=== PATIENT | female | born 1940 | race Caucasian/White ===

== ENCOUNTER 2016-08-23 09:21 | Outpatient (CLI) ==
[2016-03-01 16:53] VITALS: BMI 21.9
[2016-08-23 10:08] LABS: HEMATOCRIT 33.5 % (37.0-47.0); HEMOGLOBIN 11.4 g/dl (12.0-16.0); MEAN CORPUSCULAR HEMOGLOBIN 29.3 pg (27.0-31.0); MEAN CORPUSCULAR VOLUME 86.1 fl (81.0-99.0); RED BLOOD COUNT 3.89 10^6/ul (4.20-5.40); WHITE BLOOD COUNT 6.69 K/ul (4.6-10.2)
[2016-08-23 10:14] LABS: BILIRUBIN,URINE Negative (NEGATIVE); KETONES,URINE Negative (NEGATIVE); LEUKOCYTE ESTERASE ,URINE Trace (NEGATIVE); NITRITE,URINE Negative (NEGATIVE); PH,URINE 5.5 (5-9); PROTEIN,URINE Negative (NEGATIVE); URINE, BLOOD Negative (NEGATIVE)
[2016-08-23 10:19] LABS: ADD URINE MICROSCOPIC YES
[2016-08-23 10:20] LABS: BACTERIA,URINE TRACE (NOT PRESENT)
[2016-08-23 10:51] LABS: ALBUMIN 3.8 g/dL (3.4-5.0); ALBUMIN/GLOBULIN RATIO 1.09; BILIRUBIN,TOTAL 1.03 mg/dL (0.00-1.20); BUN/CREATININE RATIO 13.77; CALCIUM 10.2 mg/dL (8.2-10.2); CREATININE 2.25 mg/dL (0.60-1.30); MAGNESIUM 1.9 mg/dL (1.7-2.2); PHOSPHORUS 4.1 mg/dL (2.8-4.1); TOTAL PROTEIN 7.3 g/dL (5.8-8.1); URIC ACID 5.5 mg/dL (2.4-6.0)
[2016-08-24 09:37] LABS: URINE CREATINE 49.5 mg/dL (Not Estab.)
[2016-08-24 13:16] LABS: ANTI-NUCLEAR ANTIBODY SCREEN Negative (Negative)
[2016-08-24 13:32] LABS: URINE PROTEIN/CREATININE RATIO 261 mg/g creat (0-200)
[2016-08-25 07:21] LABS: ANTIMYELOPEROXIDASE ABS < 9.0 U/mL (0.0-9.0); ANTIPROTEINASE 3 ABS < 3.5 U/mL (0.0-3.5)
[2016-08-29 08:00] LABS: IMMUNOGLOBULIN M, QN, SERUM 50 mg/dL (26-217)
[2016-08-29 08:12] LABS: COMPLEMENT C3 126; COMPLEMENT C4 25
== END 2016-08-23 09:22 | disposition home or self-care (01) ==
LOC: LAB 09:21
PROVIDERS: ATTEND Internal Medicine Nephrology
DX: N18.4 Chronic kidney disease, stage 4 (severe) (principal); I10 Essential (primary) hypertension
CPT/HCPCS: 36415; 80053; 81001; 82306; 82570; 83520; 83735; 83970; 84100; 84156; 84550; 85027; 86038; 86160; 86256; 86320

== ENCOUNTER 2016-10-23 07:38 | Outpatient (CLI) ==
[2016-03-01 16:53] VITALS: BMI 21.9
[2016-10-23 08:03] LABS: HEMATOCRIT 34.9 % (37.0-47.0); HEMOGLOBIN 11.5 g/dl (12.0-16.0); MEAN CORPUSCULAR HEMOGLOBIN 28.8 pg (27.0-31.0); MEAN CORPUSCULAR VOLUME 87.3 fl (81.0-99.0); WHITE BLOOD COUNT 6.76 K/ul (4.6-10.2)
[2016-10-23 08:07] LABS: BILIRUBIN,URINE Negative (NEGATIVE); KETONES,URINE Negative (NEGATIVE); LEUKOCYTE ESTERASE ,URINE 3+ (NEGATIVE); NITRITE,URINE Negative (NEGATIVE); PROTEIN,URINE Trace (NEGATIVE); URINE, BLOOD Trace-intact (NEGATIVE)
[2016-10-23 08:11] LABS: ADD URINE MICROSCOPIC YES
[2016-10-23 08:13] LABS: BACTERIA,URINE TRACE (NOT PRESENT)
[2016-10-23 09:39] LABS: ALBUMIN 3.9 g/dL (3.4-5.0); BUN/CREATININE RATIO 14.94; CALCIUM 10.5 mg/dL (8.2-10.2); CREATININE 2.61 mg/dL (0.60-1.30); FERRITIN 138.41 ng/mL (4.63-204.00); FOLATE 12.9 ng/mL (3.1-20.5); PHOSPHORUS 3.9 mg/dL (2.8-4.1)
[2016-10-24 09:37] LABS: URINE CREATINE 61.4 mg/dL (Not Estab.)
== END 2016-10-23 07:39 | disposition home or self-care (01) ==
LOC: LAB 07:38
PROVIDERS: ATTEND Internal Medicine Nephrology
DX: N18.4 Chronic kidney disease, stage 4 (severe) (principal); D63.1 Anemia in chronic kidney disease; E55.9 Vitamin D deficiency, unspecified; I10 Essential (primary) hypertension
CPT/HCPCS: 36415; 80069; 81001; 82306; 82570; 82607; 82728; 82746; 83540; 83550; 83735; 84156; 85027

== ENCOUNTER 2016-12-24 10:07 | Outpatient (CLI) ==
[2016-03-01 16:53] VITALS: BMI 21.9
[2016-12-24 10:42] LABS: HEMATOCRIT 34.5 % (37.0-47.0); HEMOGLOBIN 11.5 g/dl (12.0-16.0); MEAN CORPUSCULAR HEMOGLOBIN 29.2 pg (27.0-31.0); MEAN CORPUSCULAR HGB CONC 33.3 (31.8-35.4); MEAN CORPUSCULAR VOLUME 87.6 fl (81.0-99.0); RED BLOOD COUNT 3.94 10^6/ul (4.20-5.40); WHITE BLOOD COUNT 6.68 K/ul (4.6-10.2)
[2016-12-24 11:47] LABS: ALBUMIN 3.7 g/dL (3.4-5.0); ANION GAP 15.2; CALCIUM 10.1 mg/dL (8.2-10.2); CREATININE 2.25 mg/dL (0.60-1.30); FERRITIN 131.45 ng/mL (4.63-204.00); FOLATE 15.2 ng/mL (3.1-20.5); MAGNESIUM 2.2 mg/dL (1.7-2.2); PHOSPHORUS 3.8 mg/dL (2.8-4.1); POTASSIUM 4.2 mmol/L (3.5-5.10)
[2016-12-24 14:35] LABS: BILIRUBIN,URINE Negative (NEGATIVE); KETONES,URINE Negative (NEGATIVE); LEUKOCYTE ESTERASE ,URINE 2+ (NEGATIVE); NITRITE,URINE Negative (NEGATIVE); PH,URINE 5.5 (5-9); PROTEIN,URINE 1+ (NEGATIVE); URINE, BLOOD Trace-intact (NEGATIVE)
[2016-12-24 14:47] LABS: ADD URINE MICROSCOPIC YES
[2016-12-24 14:59] LABS: BACTERIA,URINE 1+ (NOT PRESENT)
[2016-12-25 10:39] LABS: URINE CREATINE 150.1 mg/dL (Not Estab.)
== END 2016-12-24 10:08 ==
LOC: LAB 10:07
PROVIDERS: ATTEND Internal Medicine Nephrology
DX: N18.4 Chronic kidney disease, stage 4 (severe) (principal); D63.1 Anemia in chronic kidney disease; I12.9 Hypertensive chronic kidney disease with stage 1 through stage 4 chronic kidney disease, or unspecified chronic kidney disease
CPT/HCPCS: 36415; 80069; 81001; 82306; 82570; 82607; 82728; 82746; 83540; 83550; 83735; 83970; 84156; 85027

== ENCOUNTER 2017-03-25 09:36 | Outpatient (CLI) ==
[2016-03-01 16:53] VITALS: BMI 21.9
[2017-03-25 10:09] LABS: HEMATOCRIT 31.7 % (37.0-47.0); HEMOGLOBIN 11.1 g/dl (12.0-16.0); MEAN CORPUSCULAR HEMOGLOBIN 30.2 pg (27.0-31.0); MEAN CORPUSCULAR VOLUME 86.4 fl (81.0-99.0); RED BLOOD COUNT 3.67 10^6/ul (4.20-5.40); WHITE BLOOD COUNT 7.26 K/ul (4.6-10.2)
[2017-03-25 10:27] LABS: BILIRUBIN,URINE Negative (NEGATIVE); KETONES,URINE Negative (NEGATIVE); LEUKOCYTE ESTERASE ,URINE 1+ (NEGATIVE); NITRITE,URINE Negative (NEGATIVE); PH,URINE 5.5 (5-9); PROTEIN,URINE Negative (NEGATIVE); URINE, BLOOD Negative (NEGATIVE)
[2017-03-25 10:30] LABS: ADD URINE MICROSCOPIC YES; BACTERIA,URINE 1+ (NOT PRESENT)
[2017-03-25 11:11] LABS: ALBUMIN 3.3 g/dL (3.4-5.0); ANION GAP 15.3; BUN/CREATININE RATIO 17.59; CALCIUM 10.3 mg/dL (8.2-10.2); CREATININE 2.33 mg/dL (0.60-1.30); MAGNESIUM 1.9 mg/dL (1.7-2.2); PHOSPHORUS 3.6 mg/dL (2.8-4.1); POTASSIUM 4.3 mmol/L (3.5-5.10)
[2017-03-26 13:13] LABS: URINE CREATININE 55.5 mg/dL (Not Estab.); URINE TOTAL PROTEIN 7.6 mg/dL (Not Estab.)
== END 2017-03-25 09:37 | disposition home or self-care (01) ==
LOC: LAB 09:36
PROVIDERS: ATTEND Internal Medicine Nephrology
DX: N18.4 Chronic kidney disease, stage 4 (severe) (principal); E55.9 Vitamin D deficiency, unspecified; I10 Essential (primary) hypertension
CPT/HCPCS: 36415; 80069; 81001; 82306; 82570; 83735; 83970; 84156; 84550; 85027

== ENCOUNTER 2017-04-05 12:46 | Outpatient (CLI) ==
[2016-03-01 16:53] VITALS: BMI 21.9
== END 2017-04-05 12:47 | disposition home or self-care (01) ==
LOC: RAD 12:46
PROVIDERS: ATTEND Internal Medicine
DX: Z12.31 Encounter for screening mammogram for malignant neoplasm of breast (principal)
CPT/HCPCS: 77067

== ENCOUNTER 2017-07-03 09:25 | Outpatient (CLI) ==
[2016-03-01 16:53] VITALS: BMI 21.9
== END 2017-07-03 09:26 | disposition home or self-care (01) ==
LOC: LAB 09:25
PROVIDERS: ATTEND Internal Medicine Nephrology
DX: N18.4 Chronic kidney disease, stage 4 (severe) (principal); E55.9 Vitamin D deficiency, unspecified; I10 Essential (primary) hypertension
CPT/HCPCS: 36415; 80069; 81001; 82306; 82570; 83735; 83970; 84156; 84550; 85027

== ENCOUNTER 2017-09-24 11:14 | Outpatient (CLI) ==
[2016-03-01 16:53] VITALS: BMI 21.9
== END 2017-09-24 11:15 | disposition home or self-care (01) ==
LOC: LAB 11:14
PROVIDERS: ATTEND Internal Medicine Nephrology
DX: N18.4 Chronic kidney disease, stage 4 (severe) (principal); I10 Essential (primary) hypertension
CPT/HCPCS: 36415; 80069; 81001; 82306; 82570; 83735; 83970; 84156; 84550; 85027

== ENCOUNTER 2017-09-29 15:43 | Emergency (ER) | payer OTHER ==
[2017-09-29 15:47] VITALS: BP 153/75; TEMP 98.1; BMI 24.1
--- NOTE | 2017-09-29 15:58 | ED.PDOC ---
General ED Provider: Dr. ESDRAS INTERIANO-ER Chief Complaint: Foot Pain/Injury Stated Complaint: my toe looks awful Time Seen by Physician: 15:56 Mode of Arrival: Walk-In Information Source: Patient Exam Limitations: No limitations Primary Care Provider: RINKU HAMILTON Nursing and Triage Documentation Reviewed and Agree: Yes Reviewed sepsis parameters & appropriate labs ordered?: Yes System Inflammatory Response Syndrome: Not Applicable Sepsis Protocol: For patient's 13 years and over: Temp is 96.8 and below OR 101 and greater Pulse >90 BPM Resp >20/minute Acutely Altered Mental Status Are patient's symptoms suggestive of a new infection, such as: -Pneumonia -Skin, Soft Tissue -Endocarditis -UTI -Bone, Joint Infection -Implantable Device -Acute Abdominal Infection -Wound Infection -Meningitis -Blood Stream Catheter Infection -Unknown Skin Complaint Exam - Skin/Soft Tissue Complaint/Exam Onset/Duration: 24hrs Symptoms Are: Still present Timing: Constant Initial Severity: Mild Current Severity: Moderate Location: right fourth toe Character: Reports: Redness, Swelling, Raised, Painful Aggravating: Reports: None Alleviating: Reports: None Associated Signs and Symptoms: Reports: Drainage, Bruising, Tenderness Related Surgical History: Reports: None Recent Exposure to Others w/Similar Symptoms: No Skin Findings: Present: Erythema, Induration, Wet ulceration, Pustules Joint Tenderness Present: No Differential Diagnoses: Abscess Review of Systems - Review Of Systems Constitutional: Reports: No symptoms Eyes: Reports: No symptoms Ears, Nose, Mouth, Throat: Reports: No symptoms Respiratory: Reports: No symptoms Cardiac: Reports: No symptoms GI: Reports: No symptoms : Reports: No symptoms Musculoskeletal: Reports: No symptoms Skin: Reports: Other Neurological: Reports: No symptoms Endocrine: Reports: No symptoms Hematologic/Lymphatic: Reports: No symptoms All Other Systems: Reviewed and Negative Past Medical History - Past Medical History Previously Healthy: No Endocrine: Reports: DM 2 Cardiovascular: Reports: Hypertension Respiratory: Reports: None Hematological: Reports: None Gastrointestinal: Reports: None Genitourinary: Reports: None Neuro/Psych: Reports: CVA (2 months ago) Musculoskeletal: Reports: None Cancer: Reports: None Last Menstrual Period: n/a Other Pertinent Past Medical History: hysterectomy - Surgical History General Surgical History: Reports: Hysterectomy, Orthopedic (multiple toes amputated each foot.) - Family History Family History: Reports: Unknown - Social History Smoking Status: Former smoker Hx Substance Use: No Alcohol Screening: None Lives: With family Physical Exam - Physical Exam Appearance: Well-appearing, No pain distress, Well-nourished Pain Distress: Mild Eyes: EVELIO ENT: Ears normal, Nose normal, Oropharynx normal Neck: Supple Respiratory: Airway patent Cardiovascular: RRR GI/: Soft, Nontender, No masses, Bowel sounds normal, No Organomegaly Musculoskeletal: Normal strength, ROM intact, No edema, No calf tenderness Skin: Warm, Dry, Normal color Neurological: Sensation intact Psychiatric: Affect appropriate, Mood appropriate Physician Notification - Case Discussed Physician Notified: dr hamilton--agreed wteren sierra transfer Time of Notification: 15:58 Critical Care Note - Critical Care Note Total Time (mins): 0 Course - Course Vital Signs: Temp Pulse Resp BP Pulse Ox 09/29/17 15:43 98.1 F 99 H 16 153/75 H 97 Departure - Departure Time of Disposition: 15:58 Disposition: TSF SHORT-TRM HOSP 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
== END 2017-09-29 16:50 | disposition short-term general hospital (02) ==
LOC: ED 15:43
DX: E11.52 Type 2 diabetes mellitus with diabetic peripheral angiopathy with gangrene (principal); I96 Gangrene, not elsewhere classified; Z79.4 Long term (current) use of insulin; I10 Essential (primary) hypertension; Z86.73 Personal history of transient ischemic attack (TIA), and cerebral infarction without residual deficits
CPT/HCPCS: 99285

== ENCOUNTER 2018-01-14 08:33 | Outpatient (CLI) | END 2018-01-14 08:34 | disposition home or self-care (01) | LOC: LAB 08:33 | PROVIDERS: ATTEND Nurse Practitioner Family | DX: N18.4 Chronic kidney disease, stage 4 (severe) (principal); I10 Essential (primary) hypertension | CPT/HCPCS: 36415; 80069; 81001; 82306; 82570; 83970; 84156; 84550; 85027 ==

== ENCOUNTER 2018-04-16 08:52 | Outpatient (CLI) | END 2018-04-16 08:53 | disposition home or self-care (01) | LOC: LAB 08:52 | PROVIDERS: ATTEND Internal Medicine Nephrology | DX: N18.4 Chronic kidney disease, stage 4 (severe) (principal); E55.9 Vitamin D deficiency, unspecified; I10 Essential (primary) hypertension | CPT/HCPCS: 36415; 80069; 81001; 82306; 82570; 83735; 83970; 84156; 84550; 85027 ==

== ENCOUNTER 2018-05-06 08:45 | Outpatient (CLI) ==
--- NOTE | 2018-05-07 08:59 | MAMMO ---
EXAM: Bilateral digital screening mammogram (2-D and 3-D) History: Screening Comparison: Bilateral mammogram 04/05/2017 Findings: MLO and CC views of bilateral breasts demonstrate scattered fibroglandular breast parenchy ma. CAD was reviewed by the radiologist. Tomosynthesis was performed. Stable benign bilateral breas t calcifications. There are no dominant masses, no suspicious microcalcifications and no architectur al distortions Impression: Benign stable mammogram. Recommend followup routine screening mammography in 1 year. BIRADS 2
== END 2018-05-06 08:46 | disposition home or self-care (01) ==
LOC: RAD 08:45
PROVIDERS: ATTEND Internal Medicine
DX: Z12.31 Encounter for screening mammogram for malignant neoplasm of breast (principal)

== ENCOUNTER 2018-11-19 08:47 | Outpatient (CLI) | END 2018-11-19 08:48 | disposition home or self-care (01) | LOC: LAB 08:47 | PROVIDERS: ATTEND Internal Medicine Nephrology | DX: N18.4 Chronic kidney disease, stage 4 (severe) (principal); E55.9 Vitamin D deficiency, unspecified; I10 Essential (primary) hypertension | CPT/HCPCS: 36415; 80053; 81001; 82306; 82570; 83735; 83970; 84156; 84550; 85027 ==

== ENCOUNTER 2019-03-04 10:28 | Outpatient (CLI) | payer OTHER | END 2019-03-04 10:29 | disposition home or self-care (01) | LOC: LAB 10:28 | PROVIDERS: ATTEND Internal Medicine Nephrology | DX: N18.4 Chronic kidney disease, stage 4 (severe) (principal) | CPT/HCPCS: 36415; 80053; 81001; 82306; 82570; 83735; 83970; 84100; 84156; 84550; 85025 ==